=== PATIENT | male | born 1995 | race Caucasian/White ===

== ENCOUNTER → 2018-12-14 13:48 | Outpatient (CLI) | payer OTHER, MEDICAID, SELFPAY ==
[2018-12-14 15:42] LABS: Cholesterol 145 mg/dL (140-199); HDL Cholesterol 45 mg/dL (40-60); LDL Cholesterol Calculated 76 mg/dL (<100); Triglycerides 120 mg/dL (35-150)
[2018-12-14 16:00] LABS: Free T3, Triiodothyronine Free 3.61 pg/mL (2.77-5.27); Free T4, Direct Thyroxine 1.16 ng/dL (0.78-2.19)
[2018-12-14 16:13] LABS: Thyroid Stimulating Hormone 2.38 uIU/mL (0.47-4.68)
[2018-12-14 16:27] LABS: Vitamin B12 710 pg/mL (239-931)
[2018-12-14 17:18] LABS: Vitamin D 25 Hydroxy (D3) 28.6 ng/mL (30.0-100.0)
== END ==
PROVIDERS: PCP Student in an Organized Health Care Education/Training Program; Visit Provider Student in an Organized Health Care Education/Training Program
DX: E03.9 Hypothyroidism, unspecified (principal); Z13.220 Encounter for screening for lipoid disorders; F34.1 Dysthymic disorder; E55.9 Vitamin D deficiency, unspecified
CPT/HCPCS: 36415; 80061; 82306; 82607; 84439; 84443; 84481

== ENCOUNTER 2019-05-06 11:00 | Emergency (ER) | payer OTHER, MEDICAID, SELFPAY ==
[2019-05-06 11:09] VITALS: BP 141/91; PULSE 68; RESP 16; TEMP 37.1; O2SAT 98
--- NOTE | 2019-05-06 11:31 | ED_ITS ---
HPI - Headache General Chief Complaint: Headache Stated Complaint: HEADACHE,MUSCLE SPASMS Time Seen by Provider: 05/06/19 11:25 Source: patient Mode of arrival: ambulatory Limitations: no limitations History of Present Illness HPI Narrative: Patient is a 24-year-old male. He states he does have a history of migraines. He does have a prescription for Zomig which he did take 1 dose of today. He is here for evaluation of a headache. States the headache was gradual onset. Feels in character like prior IV is headache. He does have twitching of his right upper extremity and some twitching of his right lower ex tremity which he states is not new when he gets his headaches. No fevers. Does have some neck tenderness. Came into the emergency department because his dose of Zometa it did not help. Related Data Home Medications Medication Instructions Recorded Confirmed levothyroxine 50 mcg PO DAILY 05/06/19 05/06/19 Previous Rx's Medication Instructions Recorded sumatriptan 50 mg tablet 50 mg PO Q2HP PRN #20 tab 12/30/18 sertraline 100 mg tablet 100 mg PO DAILY #90 tab 01/14/19 Allergies Allergy/AdvReac Type Severity Reaction Status Date / Time No Known Drug Allergies Allergy Unverified 01/14/19 11:19 Review of Systems Constitutional Denies fever(s), Denies frequent falls and Reports headache(s) Eyes Reports blurry vision, Denies loss of vision and Reports photophobia ENT Ears, Nose, Mouth, and Throat: Denies dizziness, Denies facial pain, Reports headache(s), Reports neck pain, Denies disequilibrium, Denies sore throat and Denies throat swelling Cardiovascular Denies chest pain, Denies syncope and Denies dyspnea Respiratory Denies dyspnea Gastrointestinal Gastrointestinal: Denies abdominal pain, Denies nausea and Denies vomiting Musculoskeletal Reports neck pain Comments: Right upper extremity right lower extremity twitching Integumentary/Breasts Denies lesions and Denies rash Neurologic Reports abnormal movements, Denies behavioral changes, Denies dizziness, Denies syncope, Denies frequent falls, Reports headache(s), Denies loss of vision, Denies radicular pain, Reports tremor(s) and Denies disequilibrium Psychiatric Denies behavioral changes Hematologic/Lymphatic Denies easy bleeding and Denies easy bruising Allergic/Immunologic Denies throat swelling [facility] Medical History Anxiety (Chronic ~2016) Carpal tunnel syndrome (Chronic ~2013) Depression (Chronic ~2016) Headache (Chronic ~2016) Hearing loss (Chronic) Migraines (Chronic ~2016) Scoliosis (Chronic ~2018) Surgical History (Updated 12/13/18 @ 21:23 by Gabriela Fuentes) History of angiography (Resolved) Family History (Updated 12/13/18 @ 21:24 by Gabriela Fuentes) Father Hypertension Mother Diabetes mellitus History of seizures Grandmother Diabetes mellitus Hypertension Stroke Social History Smoking Status: Former smoker Family History (Updated 12/13/18 @ 21:24 by Gabriela Fuentes) Father Hypertension Mother Diabetes mellitus History of seizures Grandmother Diabetes mellitus Hypertension Stroke Social History Smoking Status: Former smoker Exam Initial Vital Signs Initial Vital Signs: Vital Signs Temperature 98.8 F 05/06/19 11:09 Pulse Rate 68 05/06/19 11:09 Respiratory Rate 16 05/06/19 11:09 Blood Pressure 141/91 H 05/06/19 11:09 Pulse Oximetry 98 05/06/19 11:09 Const General: cooperative, well developed and well groomed Orientation: alert, awake and oriented x3 HENMT Head: normal to inspection and normocephalic Ears: TM's normal bilaterally Nose: external nose normal Mouth: oral mucosae normal Eyes General: appearance normal, both eyes and all related structures Pupils: PERRL EOM: EOM intact bilaterally Resp Effort & Inspection: normal respiratory effort Auscultation: clear to auscultation bilaterally Cardio Rate: regular rate Rhythm: regular rhythm GI Palpation: soft Skin Lesions: no lesions Rashes: no rashes Neuro General: alert, awake and oriented x3 Cranial Nerves: CN's II-XI intact bilaterally Cognition: normal cognition Speech: speech normal Gait: normal gait Motor: muscle tone normal throughout Other: Patient does have what appears to be involuntary twitching mostly in his right upper extremity but also in his right lower extremity. Extrem General: capillary refill normal Psych Appearance: grossly normal and well kempt Scores GCS [place] coma scale eye opening: Spontaneous [place] coma scale verbal response: Orientated [place] coma scale motor response: Obey commands [place] coma scale total score: 15 Course Orders Ordered: ED Orders 05/06/19 11:55 Basic Metabolic Panel Stat Complete Blood Count AUTO DIFF Stat Discontinued Medications Acetaminophen (Tylenol) 975 mg PO NOW ONE Stop: 05/06/19 11:32 Last Admin: 05/06/19 11:50 Dose: 975 mg Diphenhydramine HCl (Benadryl) 25 mg IV NOW ONE Stop: 05/06/19 11:32 Last Admin: 05/06/19 11:49 Dose: 25 mg Sodium Chloride (Normal Saline 0.9%) 1,000 mls @ 1,000 mls/hr IV BOLUS ONE Stop: 05/06/19 12:30 Last Infusion: 05/06/19 12:52 Dose: 0 mls/hr Admin: 05/06/19 11:50 Dose: 1,000 mls/hr Metoclopramide HCl (Reglan) 10 mg IV NOW ONE Stop: 05/06/19 11:32 Last Admin: 05/06/19 11:49 Dose: 10 mg Vital Signs - 8 hr 05/06/19 11:09 05/06/19 12:51 Temperature 98.8 F Pulse Rate 68 71 Respiratory Rate 16 14 Blood Pressure 141/91 H 124/74 Pulse Oximetry 98 99 MDM - Headache Lab Data Attestation: I reviewed the patient's lab results. Result diagrams: 05/06/19 11:55 05/06/19 11:55 Lab Results 05/06/19 05/06/19 Range/Units 11:55 11:55 WBC 8.6 (4.5-11.0) X10^3/uL RBC 5.23 (4.5-5.9) X10^6/uL Hgb 16.1 (13.5-17.5) g/dL Hct 47.2 (41-53) % MCV 90.2 (80-100) fL MCH 30.8 (26-34) PG MCHC 34.2 (30-36) % RDW 13.4 (11.6-14.8) % Plt Count 239 (150-400) X10^3/uL Neut % (Auto) 74.4 (50-75) % Lymph % (Auto) 19.8 L (25-40) % Rush % (Auto) 4.4 (3-14) % Eos % (Auto) 0.8 L (2-4) % Baso % (Auto) 0.6 (0-2) % Neut # (Auto) 6400 (9737-1839) /uL Lymph # (Auto) 1700 (1154-6300) /uL Rush # (Auto) 400 (0-900) /uL Eos # (Auto) 100 (0-450) /uL Baso # (Auto) 0 (0-100) /uL Sodium 142 (137-145) mmol/L Potassium 4.0 (3.4-5.1) mmol/L Chloride 100 (98-107) mmol/L Carbon Dioxide 28 (22-32) mmol/L BUN 15 (9-20) mg/dL Creatinine 0.90 (0.66-1.25) mg/dL Estimated GFR > 60.0 (>60) mL/min BUN/Creatinine Ratio 16.7 (6-22) Glucose 106 H (70-100) mg/dL Calcium 10.6 H (8.4-10.2) mg/dL MDM Narrative Medical decision making narrative: Patient was given medications which completely resolved his symptoms. I have low suspicion for intracranial hemorrhage. Low suspicion for meningitis. Was a gradual onset. Will hold on CT scan or lumbar puncture. Will hold on further workup for now. Patient was given return precautions and follow-up instructions. He does have Zomig that he can take at home. Both he and his mother at bedside expressed understanding and agreed this plan. Discharge Plan Departure Patient Disposition: Home Clinical Impression: Headache Qualifiers: Headache type: unspecified Headache chronicity pattern: unspecified pattern Intractability: not intractable Qualified Code(s): R51 - Headache Discharge Date/Time: 05/06/19 12:51 Interventions: ED Discharge Assessment Last Done: 05/06/19 12:51 Instructions: DI for Headache Activity Restrictions/Additional Instructions: Continue to take all of your medications as directed. Contact your primary doctor for follow-up return to the emergency department for any new or worsening symptoms Prescriptions: No Action sumatriptan succinate 50 mg tablet 50 mg PO Q2HP PRN (Reason: migraine headache) Qty: 20 RF: 5 sertraline 100 mg tablet 100 mg PO DAILY Qty: 90 RF: 1 levothyroxine 50 mcg tablet 50 mcg PO DAILY RF: 0 Referrals: Marcus East MD [Primary Care Provider] -
[2019-05-06] MEDS: diphenhydrAMINE 50 MG/ML VIAL 25 MG IV (11:49)
[2019-05-06] MEDS: METOCLOPRAMIDE 10 MG/2 ML INJ IV (11:49)
[2019-05-06] MEDS: SODIUM CHLORIDE 0.9% 1,000 ML 1000 ML IV (11:50)
[2019-05-06] MEDS: ACETAMINOPHEN 325 MG TABLET 975 MG PO (11:50)
[2019-05-06 12:02] LABS: Add Manual Diff / Slide Review NO; Basophils Absolute Auto 0 /uL (0-100); Basophils Percent Auto 0.6 % (0-2); Eosinophils Absolute Auto 100 /uL (0-450); Eosinophils Percent Auto 0.8 % (2-4); Hematocrit 47.2 % (41-53); Hemoglobin 16.1 g/dL (13.5-17.5); Lymphocytes Absolute Auto 1700 /uL (1100-4500); Lymphocytes Percent Auto 19.8 % (25-40); Mean Corpuscular HGB Conc 34.2 % (30-36); Mean Corpuscular Hemoglobin 30.8 PG (26-34); Mean Corpuscular Volume 90.2 fL (80-100); Monocytes Absolute Auto 400 /uL (0-900); Monocytes Percent Auto 4.4 % (3-14); Neutrophils Absolute Auto 6400 /uL (1500-7000); Neutrophils Percent Auto 74.4 % (50-75); Platelet Count 239 X10^3/uL (150-400); Red Blood Cell Count 5.23 X10^6/uL (4.5-5.9); Red Cell Distribution Width 13.4 % (11.6-14.8); White Blood Cell Count 8.6 X10^3/uL (4.5-11.0)
[2019-05-06 12:14] LABS: BUN Creatinine Ratio 16.7 (6-22); Blood Urea Nitrogen 15 mg/dL (9-20); Calcium 10.6 mg/dL (8.4-10.2); Carbon Dioxide 28 mmol/L (22-32); Chloride 100 mmol/L (98-107); Estimated Glomerular Filt Rate > 60.0 mL/min (>60); Glucose 106 mg/dL (70-100); HEMOLYSIS < 15 (0-50); Sodium 142 mmol/L (137-145)
[2019-05-06 12:51] VITALS: BP 124/74; PULSE 71; RESP 14; O2SAT 99
== END 2019-05-06 12:51 | disposition home or self-care (01) ==
PROVIDERS: Emergency Provider Emergency Medicine; PCP Student in an Organized Health Care Education/Training Program
DX: R51 Headache (principal)
CPT/HCPCS: 36591; 80048; 85025; 96361; 96374; 96375; 99283; 99284; J1200; J2765

== ENCOUNTER → 2020-03-15 11:06 | Outpatient (CLI) | payer OTHER, MEDICAID, SELFPAY ==
[2020-03-15 12:17] LABS: Add Manual Diff / Slide Review NO; Basophils Absolute Auto 0 /uL (0-100); Basophils Percent Auto 0.5 % (0-2); Eosinophils Absolute Auto 100 /uL (0-450); Eosinophils Percent Auto 1.6 % (2-4); Hematocrit 45.7 % (41-53); Hemoglobin 15.5 g/dL (13.5-17.5); Lymphocytes Absolute Auto 2300 /uL (1100-4500); Lymphocytes Percent Auto 29.8 % (25-40); Mean Corpuscular HGB Conc 33.8 % (30-36); Mean Corpuscular Hemoglobin 30.5 PG (26-34); Monocytes Absolute Auto 400 /uL (0-900); Monocytes Percent Auto 5.5 % (3-14); Neutrophils Absolute Auto 4900 /uL (1500-7000); Neutrophils Percent Auto 62.6 % (50-75); Platelet Count 260 X10^3/uL (150-400); Red Blood Cell Count 5.08 X10^6/uL (4.5-5.9); Red Cell Distribution Width 13.9 % (11.6-14.8); White Blood Cell Count 7.9 X10^3/uL (4.5-11.0)
[2020-03-15 12:52] LABS: BUN Creatinine Ratio 18.4 (6-22); Blood Urea Nitrogen 16 mg/dL (9-20); Calcium 10.1 mg/dL (8.4-10.2); Carbon Dioxide 26 mmol/L (22-32); Chloride 102 mmol/L (98-107); Estimated Glomerular Filt Rate > 60.0 mL/min (>60); Glucose 109 mg/dL (70-100); HEMOLYSIS < 15 (0-50); Potassium 4.2 mmol/L (3.4-5.1); Sodium 140 mmol/L (137-145)
[2020-03-15 13:06] LABS: Free T4, Direct Thyroxine 1.24 ng/dL (0.78-2.19)
[2020-03-15 13:19] LABS: Thyroid Stimulating Hormone 1.75 uIU/mL (0.47-4.68)
[2020-03-15 13:36] LABS: Vitamin B12 763 pg/mL (239-931)
== END ==
PROVIDERS: PCP Student in an Organized Health Care Education/Training Program; Referring Provider Student in an Organized Health Care Education/Training Program; Visit Provider Student in an Organized Health Care Education/Training Program
DX: E03.9 Hypothyroidism, unspecified (principal); G43.909 Migraine, unspecified, not intractable, without status migrainosus; R23.2 Flushing
CPT/HCPCS: 36415; 80048; 82607; 84439; 84443; 85025

== ENCOUNTER → 2022-12-15 09:01 | Outpatient (CLI) | payer OTHER, SELFPAY ==
[2022-12-15 09:52] LABS: Add Manual Diff / Slide Review NO; Basophils Absolute Auto 0 /uL (0-100); Basophils Percent Auto 0.4 % (0-2); Eosinophils Absolute Auto 100 /uL (0-450); Hematocrit 49.4 % (41-53); Hemoglobin 16.9 g/dL (13.5-17.5); Lymphocytes Absolute Auto 2100 /uL (1100-4500); Lymphocytes Percent Auto 29.4 % (25-40); Mean Corpuscular HGB Conc 34.1 % (30-36); Mean Corpuscular Hemoglobin 30.1 PG (26-34); Mean Corpuscular Volume 88.3 fL (80-100); Monocytes Absolute Auto 400 /uL (0-900); Monocytes Percent Auto 6.1 % (3-14); Neutrophils Absolute Auto 4500 /uL (1500-7000); Neutrophils Percent Auto 63.1 % (50-75); Platelet Count 263 X10^3/uL (150-400); Red Cell Distribution Width 13.6 % (11.6-14.8); White Blood Cell Count 7.2 X10^3/uL (4.5-11.0)
[2022-12-15 11:09] LABS: TSH w/ Reflex to FT4 3.34 uIU/mL (0.47-4.68)
[2022-12-15 17:02] LABS: Alanine Aminotransferase 23 IU/L (<50); Albumin 4.9 g/dL (3.5-5.0); Albumin Globulin Ratio 1.4 (1.0-2.8); Alkaline Phosphatase 59 U/L (38-126); Aspartate Aminotransferase 23 IU/L (17-59); BUN Creatinine Ratio 11.2 (6-22); Bilirubin Total 1.1 mg/dL (0.2-1.3); Blood Urea Nitrogen 12 mg/dL (9-20); Calcium 10.3 mg/dL (8.4-10.2); Carbon Dioxide 35 mmol/L (22-32); Chloride 99 mmol/L (98-107); Estimated Glomerular Filt Rate > 60 mL/min (>60); Globulin 3.6 g/dL (1.7-4.1); Glucose 91 mg/dL (70-100); HEMOLYSIS < 15 (0-50); Potassium 5.5 mmol/L (3.4-5.1); Sodium 142 mmol/L (137-145); Total Protein 8.5 g/dL (6.3-8.2)
[2022-12-15 17:48] LABS: Vitamin B12 661 pg/mL (239-931)
== END ==
PROVIDERS: PCP Student in an Organized Health Care Education/Training Program; Referring Provider Student in an Organized Health Care Education/Training Program; Visit Provider Student in an Organized Health Care Education/Training Program
DX: E03.9 Hypothyroidism, unspecified (principal); R41.3 Other amnesia; Z71.1 Person with feared health complaint in whom no diagnosis is made
CPT/HCPCS: 36415; 80053; 82306; 82607; 84443; 85025